=== PATIENT | female | born 1985 ===

== ENCOUNTER 2018-01-12 02:34 | Emergency (ER) | payer MEDICAID ==
[2018-01-12 03:00] VITALS: RESP 18
--- NOTE | 2018-01-12 03:18 | ED PDOC ---
Arrival/HPI - General Chief Complaint: GI Problem Time Seen by Provider: 01/12/18 02:39 Historian: Patient - History of Present Illness Narrative History of Present Illness (Text): 01/12/18 03:15 Macey Aden is a 32 year old female who presents to the Emergency department complaining of vomiting and diarrhea. Patient states she has been experiencing nausea with vomiting, multiple episodes of diarrhea, and abdominal discomfort since yesterday afternoon. Patient notes she had grilled chicken at a fast food restaurant for lunch yesterday. Patient denies fever, chills, chest pain, shortness of breath, urinary symptoms, back pain, neck pain, headache, dizziness, or any other complaints. Symptom Onset: Gradual Symptom Course: Unchanged Activities at Onset: Light Context: Home Past Medical History - Provider Review Nursing Documentation Reviewed: Yes - Infectious Disease Hx of Infectious Diseases: None - Cardiac Hx Cardiac Disorders: Yes Hx Hypertension: Yes (not taking any meds) - Pulmonary Hx Respiratory Disorders: No - Neurological Hx Neurological Disorder: No - HEENT Hx HEENT Disorder: No - Renal Hx Renal Disorder: No - Endocrine/Metabolic Hx Endocrine Disorders: No - Hematological/Oncological Hx Blood Disorders: No - Integumentary Hx Dermatological Disorder: No - Musculoskeletal/Rheumatological Hx Musculoskeletal Disorders: No - Gastrointestinal Hx Gastrointestinal Disorders: No - Genitourinary/Gynecological Hx Genitourinary Disorders: No - Psychiatric Hx Psychophysiologic Disorder: No Hx Substance Use: No - Anesthesia Hx Anesthesia: No Family/Social History - Physician Review Nursing Documentation Reviewed: Yes Family/Social History: Unknown Family HX Smoking Status: Never Smoked Hx Alcohol Use: No Hx Substance Use: No Allergies/Home Meds Allergies/Adverse Reactions: Allergies cefazolin [From Ancef] Allergy (Verified 01/12/18 02:54) VOMITING Home Medications: Home Meds Medication Instructions Recorded Confirmed No Known Home Med 01/12/18 01/12/18 Review of Systems - Physician Review All systems were reviewed & negative as marked: Yes - Review of Systems Constitutional: Normal. absent: Fevers Eyes: Normal ENT: Normal Respiratory: Normal. absent: SOB, Cough Cardiovascular: Normal. absent: Chest Pain Gastrointestinal: Abdominal Pain, Diarrhea, Nausea, Vomiting Genitourinary Female: Normal. absent: Dysuria, Frequency, Hematuria, Urine Output Changes Musculoskeletal: Normal. absent: Back Pain, Neck Pain Skin: Normal. absent: Rash Neurological: Normal. absent: Headache, Dizziness Endocrine: Normal Hemo/Lymphatic: Normal Psychiatric: Normal Physical Exam Vital Signs Reviewed: Yes Vital Signs Temp Pulse Resp BP Pulse Ox 01/12/18 02:59 97.2 F L 85 18 113/70 98 Temperature: Afebrile Blood Pressure: Normal Pulse: Regular Respiratory Rate: Normal Appearance: Positive for: Well-Appearing, Non-Toxic, Comfortable Pain Distress: None Mental Status: Positive for: Alert and Oriented X 3 - Systems Exam Head: Present: Atraumatic, Normocephalic Pupils: Present: PERRL Extroacular Muscles: Present: EOMI Conjunctiva: Present: Normal Mouth: Present: Moist Mucous Membranes Neck: Present: Normal Range of Motion Respiratory/Chest: Present: Clear to Auscultation, Good Air Exchange. No: Respiratory Distress, Accessory Muscle Use Cardiovascular: Present: Regular Rate and Rhythm, Normal S1, S2. No: Murmurs Abdomen: Present: Tenderness (Upper abdominal tenderness). No: Distention, Peritoneal Signs Back: Present: Normal Inspection Upper Extremity: Present: Normal Inspection. No: Cyanosis, Edema Lower Extremity: Present: Normal Inspection. No: Edema Neurological: Present: GCS=15, CN II-XII Intact, Speech Normal Skin: Present: Warm, Dry, Normal Color. No: Rashes Psychiatric: Present: Alert, Oriented x 3, Normal Insight, Normal Concentration Medical Decision Making ED Course and Treatment: 01/12/18 03:15 Impression: 32 year old female complaining of nausea, vomiting, diarrhea, and abdominal discomfort. Plan: -- US Abdomen -- Labs, lipase -- IV fluids -- Zofran -- Pepcid -- Toradol -- Reassess and disposition Progress Notes: 01/12/18 06:12 Reviewed sono, US Abdomen shows: Limitations: Examination limited by increased bowel gas and patient's body habitus. Liver: Unremarkable. No mass. No intrahepatic bile duct dilation. Gallbladder: Partially contracted gallbladder. No stone. Common bile duct: Common bile duct measures 4 mm. Pancreas: Unremarkable as visualized. Right kidney: Right kidney measures 10.2 x 5.3 x 5.6 cm. No stones. No hydronephrosis. IMPRESSION: Hepatic steatosis. 01/12/18 07:28 Pt.still c/o abdominal pain/CT Scan Abd/pelvis ordered/additional analgesics ordered/case endorsed to - Lab Interpretations Lab Results: 01/12/18 03:15 01/12/18 03:15 Lab Results 01/12/18 03:15: WBC 13.8 H, RBC 4.48, Hgb 12.1, Hct 36.4, MCV 81.3, MCH 27.0, MCHC 33.2, RDW 15.1 H, Plt Count 295, MPV 9.8 01/12/18 03:15: Sodium 142, Potassium 3.9, Chloride 106, Carbon Dioxide 23, Anion Gap 17, BUN 16, Creatinine 0.7, Est GFR ( Amer) > 60, Est GFR (Non- Af Amer) > 60, Random Glucose 128 H, Calcium 9.0, Total Bilirubin 0.4, AST 26, ALT 26, Alkaline Phosphatase 85, Total Protein 8.0, Albumin 4.3, Globulin 3.7, Albumin/Globulin Ratio 1.2, Lipase 217 I have reviewed the lab results: Yes - RAD Interpretation Radiology Orders: 01/12/18 04:14 GALLBLADDER & PANCREAS [US] Stat Aluminum Siding Applicator: Radiologist - Medication Orders Current Medication Orders: Discontinued Medications Sodium Chloride (Sodium Chloride 0.9%) 1,000 mls @ 999 mls/hr IV .Q1H1M STA Stop: 01/12/18 04:26 Last Admin: 01/12/18 03:30 Dose: 999 mls/hr eMAR Start Stop Document 01/12/18 03:30 AD (Rec: 01/12/18 03:44 AD [id number]) Intravenous Solution Start Date 01/12/18 Start Time 03:30 Famotidine (Pepcid 20mg/50ml Premix) 20 mg in 50 mls @ 100 mls/hr IVPB STAT STA Stop: 01/12/18 04:03 Last Admin: 01/12/18 03:42 Dose: 100 mls/hr eMAR Start Stop Document 01/12/18 03:42 AD (Rec: 01/12/18 03:43 AD [id number]) Intravenous Solution Start Date 01/12/18 Start Time 03:43 Ketorolac Tromethamine (Toradol) 30 mg IVP ONCE ONE Stop: 01/12/18 03:27 Last Admin: 01/12/18 03:43 Dose: 30 mg MAR Pain Assessment Document 01/12/18 03:43 AD (Rec: 01/12/18 03:43 AD [id number]) Pain Reassessment Is this a pain reassessment? No Presence of Pain Presence of Pain Yes Pain Scale Used Pain Scale Used Numeric Description Intensity of Pain at present 8 Pain Behavior Facial Grimacing IVP Administration Document 01/12/18 03:43 AD (Rec: 01/12/18 03:43 AD [id number]) Charges for Administration # of IVP Administrations 1 Morphine Sulfate (Morphine) 4 mg IVP STAT STA Stop: 01/12/18 06:17 Last Admin: 01/12/18 06:27 Dose: 4 mg MAR Pain Assessment Document 01/12/18 06:27 JOL (Rec: 01/12/18 06:27 [id number] Pain Reassessment Is this a pain reassessment? No Sleep Is patient sleeping during reassessment? No Presence of Pain Presence of Pain Yes Pain Scale Used Pain Scale Used Numeric Location Pain Location Body Site Abdomen IVP Administration Document 01/12/18 06:27 JOL (Rec: 01/12/18 06:27 [id number] Charges for Administration # of IVP Administrations 1 Ondansetron HCl (Zofran Inj) 4 mg IVP ONCE ONE Stop: 01/12/18 03:27 Last Admin: 01/12/18 03:43 Dose: 4 mg IVP Administration Document 01/12/18 03:43 AD (Rec: 01/12/18 03:43 AD [id number]) Charges for Administration # of IVP Administrations 1 - Scribe Statement The provider has reviewed the documentation as recorded by the Scribdon Herrera All medical record entries made by the Scribe were at my direction and personally dictated by me. I have reviewed the chart and agree that the record accurately reflects my personal performance of the history, physical exam, medical decision making, and the department course for this patient. I have also personally directed, reviewed, and agree with the discharge instructions and disposition. Disposition/Present on Arrival - Present on Arrival Any Indicators Present on Arrival: No History of DVT/PE: No History of Uncontrolled Diabetes: No Urinary Catheter: No History of Decub. Ulcer: No History Surgical Site Infection Following: None - Disposition Have Diagnosis and Disposition been Completed?: No Diagnosis: Abdominal pain Disposition Time: 07:20 Condition: STABLE Forms: [employer] (Brazilian)
[2018-01-12] MEDS ORDERED: Sodium Chloride 0.9% 1,000 ML IV STA (03:26)
[2018-01-12 03:34] LABS: HEMOGLOBIN 12.1 g/dL (12.0-16.0); MEAN CELL VOLUME 81.3 fl (80.0-105.0); MEAN CORPUSCULAR HGB CONC 33.2 g/dl (31.0-37.0); MEAN PLATELET VOLUME 9.8 fl (7.0-11.0); RBC 4.48 10^6/uL (3.5-6.1); RED CELL DISTRIBUTION WIDTH 15.1 % (11.5-14.5); WHITE BLOOD COUNT 13.8 10^3/ul (4.5-11.0)
[2018-01-12] MEDS ORDERED: Famotidine 20mg/50ml 20 MG/50 ML BAG IVPB STA (03:34)
[2018-01-12 03:44] LABS: ALB/GLOB RATIO 1.2 (1.1-1.8); ALBUMIN 4.3 g/dL (3.0-4.8); ALT/SGPT 26 U/L (7-56); AST/SGOT 26 U/L (14-36); BLOOD UREA NITROGEN 16 mg/dL (7-21); GFR AFRICAN-AMERICAN > 60; GFR NON-AFRICAN AMERICAN > 60; LIPASE 217 U/L (23-300)
--- NOTE | 2018-01-12 06:09 | US ---
EXAM: US Abdomen Limited, Right Upper Quadrant EXAM DATE/TIME: 01/12/2018 4:14 AM CLINICAL HISTORY: 32 years old, female; Pain; Abdominal pain; Generalized; Additional info: Upper abdominal pain TECHNIQUE: Real-time ultrasound of the right upper quadrant with image documentation. COMPARISON: No relevant prior studies available. FINDINGS: Limitations: Examination limited by increased bowel gas and patient's body habitus. Liver: Unremarkable. No mass. No intrahepatic bile duct dilation. Gallbladder: Partially contracted gallbladder. No stone. Common bile duct: Common bile duct measures 4 mm. Pancreas: Unremarkable as visualized. Right kidney: Right kidney measures 10.2 x 5.3 x 5.6 cm. No stones. No hydronephrosis. IMPRESSION: Hepatic steatosis.
[2018-01-12] MEDS ORDERED: Morphine 4 mg/ml ISec IVP STA ×2 (06:16→07:31)
--- NOTE | 2018-01-12 07:31 | ED PDOC ---
Physical Exam Vital Signs Temp Pulse Resp BP Pulse Ox 01/12/18 07:44 97.9 F 72 18 114/69 97 01/12/18 02:59 97.2 F L 85 18 113/70 98 Medical Decision Making ED Course and Treatment: 01/12/18 07:00 Case signed out to me by Dr. Valladares. Patient is a 32 year old female who presents to the Emergency department complaining of vomiting and diarrhea. Patient states she has been experiencing nausea with vomiting, multiple episodes of diarrhea, and abdominal discomfort since one day ago. Currently pending CT abdominal and pelvic scan. 01/12/18 09:13 Patient is feeling much better. Her pain has subsided to 2/10. She states she's able to tolerate PO. Her abdomen is soft and not tender. No peritoneal signs. She is with who will take her home. She will f/u with her PMD Dr. Patel and I also recommended her for a GI followup with Dr. Macdonald who is partition assembler. Accession No. : [id number] Patient Name / ID : DENTON ALVES / [id number] PROCEDURE: CT Abdomen and Pelvis with contrast IMPRESSION: Fluid in the large bowel may indicate an element of diarrhea. No bowel obstruction, measure edema, ascites or free intraperitoneal gas is demonstrated throughout the abdomen or pelvis. No significant lymphadenopathy or definitive mass. Lack of oral contrast limits evaluation. - Lab Interpretations Lab Results: 01/12/18 03:15 01/12/18 03:15 Lab Results 01/12/18 03:15: WBC 13.8 H, RBC 4.48, Hgb 12.1, Hct 36.4, MCV 81.3, MCH 27.0, MCHC 33.2, RDW 15.1 H, Plt Count 295, MPV 9.8 01/12/18 03:15: Sodium 142, Potassium 3.9, Chloride 106, Carbon Dioxide 23, Anion Gap 17, BUN 16, Creatinine 0.7, Est GFR ( Amer) > 60, Est GFR (Non- Af Amer) > 60, Random Glucose 128 H, Calcium 9.0, Total Bilirubin 0.4, AST 26, ALT 26, Alkaline Phosphatase 85, Total Protein 8.0, Albumin 4.3, Globulin 3.7, Albumin/Globulin Ratio 1.2, Lipase 217 - RAD Interpretation Radiology Orders: 01/12/18 04:14 GALLBLADDER & PANCREAS [US] Stat 01/12/18 07:49 ABD & PELVIS IV CONTRAST ONLY [CT] Stat Cardiac Surgeon: Radiologist - Medication Orders Current Medication Orders: Discontinued Medications Sodium Chloride (Sodium Chloride 0.9%) 1,000 mls @ 999 mls/hr IV .Q1H1M STA Stop: 01/12/18 04:26 Last Admin: 01/12/18 03:30 Dose: 999 mls/hr eMAR Start Stop Document 01/12/18 03:30 AD (Rec: 01/12/18 03:44 AD [id number]) Intravenous Solution Start Date 01/12/18 Start Time 03:30 Famotidine (Pepcid 20mg/50ml Premix) 20 mg in 50 mls @ 100 mls/hr IVPB STAT STA Stop: 01/12/18 04:03 Last Admin: 01/12/18 03:42 Dose: 100 mls/hr eMAR Start Stop Document 01/12/18 03:42 AD (Rec: 01/12/18 03:43 AD [id number]) Intravenous Solution Start Date 01/12/18 Start Time 03:43 Ketorolac Tromethamine (Toradol) 30 mg IVP ONCE ONE Stop: 01/12/18 03:27 Last Admin: 01/12/18 03:43 Dose: 30 mg MAR Pain Assessment Document 01/12/18 03:43 AD (Rec: 01/12/18 03:43 AD [id number]) Pain Reassessment Is this a pain reassessment? No Presence of Pain Presence of Pain Yes Pain Scale Used Pain Scale Used Numeric Description Intensity of Pain at present 8 Pain Behavior Facial Grimacing IVP Administration Document 01/12/18 03:43 AD (Rec: 01/12/18 03:43 AD [id number]) Charges for Administration # of IVP Administrations 1 Morphine Sulfate (Morphine) 4 mg IVP STAT STA Stop: 01/12/18 06:17 Last Admin: 01/12/18 06:27 Dose: 4 mg MAR Pain Assessment Document 01/12/18 06:27 JOL (Rec: 01/12/18 06:27 [id number] Pain Reassessment Is this a pain reassessment? No Sleep Is patient sleeping during reassessment? No Presence of Pain Presence of Pain Yes Pain Scale Used Pain Scale Used Numeric Location Pain Location Body Site Abdomen IVP Administration Document 01/12/18 06:27 JOL (Rec: 01/12/18 06:27 [id number] Charges for Administration # of IVP Administrations 1 Morphine Sulfate (Morphine) 4 mg IVP STAT STA Stop: 01/12/18 07:32 Last Admin: 01/12/18 07:49 Dose: 4 mg MAR Pain Assessment Document 01/12/18 07:49 [email or web address] (Rec: 01/12/18 07:49 [email or web address] [id number]) Pain Reassessment Is this a pain reassessment? No Sleep Is patient sleeping during reassessment? No Presence of Pain Presence of Pain Yes Pain Scale Used Pain Scale Used Numeric Location Pain Location Body Site Abdomen Description Description Constant Intensity of Pain at present 10 Pain Behavior Facial Grimacing Aggravating Factors Changing Position Alleviating Factors/Management Medication Techniques Alleviating Factors Medication IVP Administration Document 01/12/18 07:49 [email or web address] (Rec: 01/12/18 07:49 [email or web address] [id number]) Charges for Administration # of IVP Administrations 1 Ondansetron HCl (Zofran Inj) 4 mg IVP ONCE ONE Stop: 01/12/18 03:27 Last Admin: 01/12/18 03:43 Dose: 4 mg IVP Administration Document 01/12/18 03:43 AD (Rec: 01/12/18 03:43 AD [id number]) Charges for Administration # of IVP Administrations 1 Ondansetron HCl (Zofran Inj) 4 mg IVP ONCE ONE Stop: 01/12/18 07:32 Last Admin: 01/12/18 07:49 Dose: 4 mg IVP Administration Document 01/12/18 07:49 [email or web address] (Rec: 01/12/18 07:49 [email or web address] [id number]) Charges for Administration # of IVP Administrations 1 - Scribe Statement The provider has reviewed the documentation as recorded by the Mike Parnell Provider Scribe Attestation: All medical record entries made by the Scribe were at my direction and personally dictated by me. I have reviewed the chart and agree that the record accurately reflects my personal performance of the history, physical exam, medical decision making, and the department course for this patient. I have also personally directed, reviewed, and agree with the discharge instructions and disposition. Disposition/Present on Arrival - Present on Arrival Any Indicators Present on Arrival: No History of DVT/PE: No History of Uncontrolled Diabetes: No Urinary Catheter: No History of Decub. Ulcer: No History Surgical Site Infection Following: None - Disposition Have Diagnosis and Disposition been Completed?: Yes Diagnosis: Abdominal pain Disposition: HOME/ ROUTINE Disposition Time: 09:15 Patient Plan: Discharge Patient Problems: Current Active Problems Problem Status Onset Abdominal pain Acute Condition: IMPROVED Discharge Instructions (ExitCare): Acute Abdomen (Belly Pain), Adult (DC) Additional Instructions: Ms Guillaume, thank you for letting us take care of you today. Your provider was Dr. Christian. You were treated for Abdominal Pain. The emergency medical care you received today was directed at your acute symptoms. If you were prescribed any medication, please fill it and take as directed. It may take several days for your symptoms to resolve. Return to the Emergency Department if your symptoms worsen, do not improve, or if you have any other problems. Please contact your doctor or call one of the physicians/clinics you have been referred to that are listed on the Patient Visit Information form that is included in your discharge packet. Bring any paperwork you were given at discharge with you along with any medications you are taking to your follow up visit. Our treatment cannot replace ongoing medical care by a primary care provider (PCP) outside of the emergency department. Thank you for allowing the [facility] team to be part of your care today. If you had an X-Ray or CT scan: A Radiologist will review the ED reading if any change in treatment is needed we will contact you. If you had a blood, urine, or wound culture: It will take several days for the results, if any change in treatment is needed we will contact you. If you had an STI test: It will take 48 hours for the results. Please call after 1 week if you have not heard back. Prescriptions: Ondansetron ODT [Zofran ODT] 4 mg PO Q6 #14 odt Ranitidine HCl [Zantac] 150 mg PO BID PRN #30 tablet PRN Reason: Pain, Mild (1-3) Referrals: Whitley Patel MD [Non-Staff] - Follow up with primary Forms: [employer] (Greek), WORK NOTE
[2018-01-12 07:44] VITALS: BP 114/69; TEMP 97.9
--- NOTE | 2018-01-12 09:01 | CT ---
PROCEDURE: CT Abdomen and Pelvis with contrast HISTORY: abd pain COMPARISON: None. TECHNIQUE: Following the intravenous administration of iodinated contrast material, a CT examination of the abdomen and pelvis performed from the domes of the diaphragms to the symphysis pubis with reformatted datasets provided not only axial but also sagittal and coronal planes. Oral contrast was not administered as per referring physician request. Contrast dose: Omnipaque 350, 150 cc Radiation dose: Total exam DLP = 1144.19 mGy-cm. This CT exam was performed using one or more of the following dose reduction techniques: Automated exposure control, adjustment of the mA and/or kV according to patient size, and/or use of iterative reconstruction technique. FINDINGS: LOWER THORAX: Bibasilar dependent atelectasis identified. Cardiomegaly noted. LIVER: Diminished attenuation throughout the liver suggests hepatic steatosis. No underlying mass or cysts appreciable. No definite intrahepatic biliary dilatation. GALLBLADDER AND BILE DUCTS: Unremarkable. PANCREAS: Unremarkable. No gross lesion or ductal dilatation. SPLEEN: Unremarkable. ADRENALS: Unremarkable. No mass. KIDNEYS AND URETERS: Unremarkable. No hydronephrosis. No solid mass. VASCULATURE: Unremarkable. No aortic aneurysm. BOWEL: Fluid is seen in the ascending and transverse colon segments moderately and is minimally seen in the proximal left hemicolon as well. Consider potential diarrhea. . No obstruction. No gross mural thickening. APPENDIX: Normal appendix. PERITONEUM: Unremarkable. No free fluid. No free air. LYMPH NODES: Unremarkable. No enlarged lymph nodes. BLADDER: Unremarkable. REPRODUCTIVE: Unremarkable. BONES: No acute fracture. OTHER FINDINGS: None. IMPRESSION: Fluid in the large bowel may indicate an element of diarrhea. No bowel obstruction, measure edema, ascites or free intraperitoneal gas is demonstrated throughout the abdomen or pelvis. No significant lymphadenopathy or definitive mass. Lack of oral contrast limits evaluation.
[2018-01-12 09:23] VITALS: PULSE 73; O2SAT 99
== END 2018-01-12 09:22 | disposition home or self-care (01) ==
LOC: EDBD → ED 02:34
DX: R10.9 Unspecified abdominal pain (principal); I10 Essential (primary) hypertension
CPT/HCPCS: 74177; 76705; 80053; 83690; 85027; 96374; 96375; 96376; 99284; J1885; J2270; J2405; J7040; Q9967

== ENCOUNTER 2018-09-21 11:01 | Emergency (ER) | payer MEDICAID, OTHER ==
[2018-09-21 11:36] VITALS: BMI 45.3
[2018-09-21] MEDS ORDERED: Sodium Chloride 0.9% 1,000 ML IV STA (11:40)
[2018-09-21 11:46] VITALS: RESP 18
[2018-09-21 12:24] LABS: BASO # 0.02 K/mm3 (0.0-2.0); BASO % 0.2 % (0.0-3.0); EOS # 0.1 (0.0-0.7); GRAN # 5.86 (1.4-6.5); GRAN % 65.9 % (50.0-68.0); HEMOGLOBIN 12.2 g/dL (12.0-16.0); LYMPH # 2.3 (1.2-3.4); LYMPH % 25.9 % (22.0-35.0); MEAN CELL VOLUME 83.6 fl (80.0-105.0); MEAN CORPUSCULAR HEMOGLOBIN 27.1 pg (25.0-35.0); MEAN CORPUSCULAR HGB CONC 32.4 g/dl (31.0-37.0); MEAN PLATELET VOLUME 10.2 fl (7.0-11.0); MONO # 0.6 (0.1-0.6); PH,URINE 5.5 (4.7-8.0); RBC 4.51 10^6/uL (3.5-6.1); URINE BILIRUBIN NEGATIVE (NEGATIVE); URINE BLOOD LARGE (NEGATIVE); URINE GLUCOSE (UA) NEGATIVE (NEGATIVE); URINE LEUKOCYTE ESTERASE NEGATIVE Leu/uL (NEGATIVE); URINE PROTEIN NEGATIVE mg/dL (<30 mg/dL); URINE UROBILINOGEN 0.2 E.U./dL (<1 E.U./dL); WHITE BLOOD COUNT 8.9 10^3/uL (4.5-11.0)
[2018-09-21 12:25] LABS: URINE APPEARANCE CLEAR (CLEAR); URINE COLOR YELLOW (YELLOW)
[2018-09-21 12:27] LABS: URINE BACTERIA MOD /hpf; URINE RBC TNTC /hpf (0-2)
[2018-09-21 12:36] LABS: INR 1.11; PARTIAL THROMBOPLASTIN TIME 31.5 Seconds (25.1-36.5); PROTHROMBIN TIME 12.8 SECONDS (9.4-12.5)
[2018-09-21 12:38] LABS: ALB/GLOB RATIO 1.1 (1.1-1.8); ALBUMIN 4.4 g/dL (3.0-4.8); ALT/SGPT 30 U/L (7-56); AST/SGOT 25 U/L (14-36); BLOOD UREA NITROGEN 13 mg/dL (7-21); CALCIUM 9.4 mg/dL (8.4-10.5); GFR NON-AFRICAN AMERICAN > 60; LIPASE 96 U/L (23-300)
--- NOTE | 2018-09-21 14:02 | US ---
Date of service: 09/21/2018 HISTORY: epigastric pain COMPARISON: Abdomen pelvis CT with contrast 01/12/2018. TECHNIQUE: Sonographic evaluation of the right upper quadrant of the abdomen. FINDINGS: LIVER: Measures 16.8 cm in length. Normal echogenicity of the liver parenchyma. No mass. No intrahepatic bile duct dilatation. Normal directional blood flow seen at the main portal vein. GALLBLADDER: Unremarkable. No gallstones. COMMON BILE DUCT: Measures 5.0 mm. No stones. No dilatation. PANCREAS: The body of pancreas appears unremarkable the remainder obscured by overlying stomach or bowel gas. RIGHT KIDNEY: Measures 11.8 cm in length. Normal parenchymal echogenicity. No definitive mass or hydronephrosis. A 2 mm calculus is identified at the midpole right kidney within a calyx. The punctate upper pole right renal calculus seen in CT 01/12/2018 is not currently identified. AORTA: No aneurysmal dilatation. IVC: Unremarkable. OTHER FINDINGS: None . IMPRESSION: 2 mm intrarenal calculus midpole right kidney. No right hydronephrosis. Partial imaging of the pancreas with remainder of the limited abdomen ultrasound otherwise unremarkable.
--- NOTE | 2018-09-21 14:22 | ED PDOC ---
Arrival/HPI - General Chief Complaint: Abdominal Pain Time Seen by Provider: 09/21/18 11:05 Historian: Patient - History of Present Illness Narrative History of Present Illness (Text): 09/21/18 14:19 33yo female with pmhx of Gastritis who present with complaint of epigastric abdominal pain with associated nausea since this morning. Describes pain as burning and constant. States she took Omeprazole without relieve. Denies fever, chills, vomiting, diarrhea, constipation, hematemesis, hematochezia, urinary symptoms, chest pain, SOB, any other complaint. Notes that she is on day #4 of her monthly period. Past Medical History - Provider Review Nursing Documentation Reviewed: Yes - Infectious Disease Hx of Infectious Diseases: None - Cardiac Hx Cardiac Disorders: Yes Hx Hypertension: Yes (not taking any meds) - Pulmonary Hx Respiratory Disorders: No - Neurological Hx Neurological Disorder: No - HEENT Hx HEENT Disorder: No - Renal Hx Renal Disorder: No - Endocrine/Metabolic Hx Endocrine Disorders: No - Hematological/Oncological Hx Blood Disorders: No - Integumentary Hx Dermatological Disorder: No - Musculoskeletal/Rheumatological Hx Musculoskeletal Disorders: No - Gastrointestinal Hx Gastrointestinal Disorders: No - Genitourinary/Gynecological Hx Genitourinary Disorders: No - Psychiatric Hx Psychophysiologic Disorder: No Hx Substance Use: No - Surgical History Other/Comment: Rt hand sx - Anesthesia Hx Anesthesia: No Family/Social History - Physician Review Nursing Documentation Reviewed: Yes Family/Social History: Unknown Family HX Smoking Status: Never Smoked Hx Alcohol Use: No Hx Substance Use: No Allergies/Home Meds Allergies/Adverse Reactions: Allergies cefazolin [From Ancef] Allergy (Verified 09/21/18 11:36) VOMITING Review of Systems - Physician Review All systems were reviewed & negative as marked: Yes - Review of Systems Constitutional: Normal Eyes: Normal ENT: Normal Respiratory: Normal Cardiovascular: Normal Gastrointestinal: Abdominal Pain, Nausea. absent: Constipation, Diarrhea, Vomiting, Hematochezia, Hematemesis Genitourinary Female: Normal Musculoskeletal: Normal Skin: Normal Neurological: Normal Endocrine: Normal Hemo/Lymphatic: Normal Psychiatric: Normal Physical Exam Vital Signs Reviewed: Yes Vital Signs Temp Pulse Resp BP Pulse Ox 09/21/18 11:40 97.6 F 89 18 115/64 97 Temperature: Afebrile Blood Pressure: Normal Pulse: Regular Respiratory Rate: Normal Appearance: Positive for: Well-Appearing, Non-Toxic, Comfortable Pain Distress: None Mental Status: Positive for: Alert and Oriented X 3 - Systems Exam Head: Present: Atraumatic, Normocephalic Pupils: Present: PERRL Extroacular Muscles: Present: EOMI Conjunctiva: Present: Normal Mouth: Present: Moist Mucous Membranes Neck: Present: Normal Range of Motion Respiratory/Chest: Present: Clear to Auscultation, Good Air Exchange. No: Respiratory Distress, Accessory Muscle Use Cardiovascular: Present: Regular Rate and Rhythm, Normal S1, S2. No: Murmurs Abdomen: Present: Tenderness (Epigastric tenderness), Normal Bowel Sounds, Other (Soft). No: Distention, Peritoneal Signs, Rebound, Guarding, McBurney's Point Tender, Rovsing's Sign Present Back: Present: Normal Inspection Upper Extremity: Present: Normal Inspection. No: Cyanosis, Edema Lower Extremity: Present: Normal Inspection. No: Edema Neurological: Present: GCS=15, CN II-XII Intact, Speech Normal Skin: Present: Warm, Dry, Normal Color. No: Rashes Psychiatric: Present: Alert, Oriented x 3, Normal Insight, Normal Concentration Medical Decision Making ED Course and Treatment: 09/21/18 14:22 33yo female in ED for epigastric pain Labs gallbladder/pancreas US 1L Ns, Pepcid and Zofran Reassess On r evaluation pt notes resolution of her pain. Lab was unremarkable Gallbladder US IMPRESSION: 2 mm intrarenal calculus midpole right kidney. No right hydronephrosis. Partial imaging of the pancreas with remainder of the limited abdomen ultrasound otherwise unremarkable. All result was DW the pt. She takes Omeprazole and pepcid at home and was advised to continue with the medication. Advised to f/u with her PMD/GI. TRT ED for any worsening symptoms. - Lab Interpretations Lab Results: PT 12.8 SECONDS (9.4-12.5) H 09/21/18 12:11 INR 1.11 09/21/18 12:11 APTT 31.5 Seconds (25.1-36.5) 09/21/18 12:11 Total Bilirubin 0.3 mg/dL (0.2-1.3) 09/21/18 12:11 AST 25 U/L (14-36) 09/21/18 12:11 ALT 30 U/L (7-56) 09/21/18 12:11 Alkaline Phosphatase 85 U/L (38-126) 09/21/18 12:11 Total Protein 8.2 g/dL (5.8-8.3) 09/21/18 12:11 Albumin 4.4 g/dL (3.0-4.8) 09/21/18 12:11 Globulin 3.9 gm/dL 09/21/18 12:11 Albumin/Globulin Ratio 1.1 (1.1-1.8) 09/21/18 12:11 Lipase 96 U/L (23-300) 09/21/18 12:11 Urine Color Yellow (YELLOW) 09/21/18 12:11 Urine Appearance Clear (CLEAR) 09/21/18 12:11 Urine pH 5.5 (4.7-8.0) 09/21/18 12:11 Ur Specific [place] >= 1.030 (1.005-1.035) 09/21/18 12:11 Urine Protein Negative mg/dL (<30 mg/dL) 09/21/18 12:11 Urine Glucose (UA) Negative mg/dL (NEGATIVE) 09/21/18 12:11 Urine Ketones Negative mg/dL (NEGATIVE) 09/21/18 12:11 Urine Blood Large (NEGATIVE) H 09/21/18 12:11 Urine Nitrate Negative (NEGATIVE) 09/21/18 12:11 Urine Bilirubin Negative (NEGATIVE) 09/21/18 12:11 Urine Urobilinogen 0.2 E.U./dL (<1 E.U./dL) 09/21/18 12:11 Ur Leukocyte Esterase Negative [place]/uL (NEGATIVE) 09/21/18 12:11 Urine RBC Tntc /hpf (0-2) H 09/21/18 12:11 Urine WBC 1 - 3 /hpf (0-6) 09/21/18 12:11 Ur Epithelial Cells 4 - 5 /hpf (0-5) 09/21/18 12:11 Urine Bacteria Mod /hpf (NONE) 09/21/18 12:11 - RAD Interpretation Radiology Orders: 09/21/18 11:41 GALLBLADDER & PANCREAS [US] Stat - Medication Orders Current Medication Orders: Discontinued Medications Famotidine (Pepcid) 20 mg IVP STAT STA Stop: 09/21/18 11:41 Last Admin: 09/21/18 12:10 Dose: 20 mg IVP Administration Document 09/21/18 12:10 LA (Rec: 09/21/18 12:10 LA [id number]) Charges for Administration # of IVP Administrations 1 Sodium Chloride (Sodium Chloride 0.9%) 1,000 mls @ 1,000 mls/hr IV .Q1H STA Stop: 09/21/18 12:39 Last Admin: 09/21/18 12:09 Dose: 1,000 mls/hr eMAR Start Stop Document 09/21/18 12:09 LA (Rec: 09/21/18 12:09 LA [id number]) Intravenous Solution Start Date 09/21/18 Start Time 12:09 End Date 09/21/18 End time 13:09 Total Infusion Time 60 Ondansetron HCl (Zofran Inj) 4 mg IVP STAT STA Stop: 09/21/18 11:41 Last Admin: 09/21/18 12:10 Dose: 4 mg IVP Administration Document 09/21/18 12:10 LA (Rec: 09/21/18 12:10 LA [id number]) Charges for Administration # of IVP Administrations 1 Disposition/Present on Arrival - Present on Arrival Any Indicators Present on Arrival: No History of DVT/PE: No History of Uncontrolled Diabetes: No Urinary Catheter: No History of Decub. Ulcer: No History Surgical Site Infection Following: None - Disposition Have Diagnosis and Disposition been Completed?: Yes Diagnosis: Abdominal pain Disposition: HOME/ ROUTINE Disposition Time: 14:25 Patient Plan: Discharge Patient Problems: Current Active Problems Problem Status Onset Abdominal pain Acute Condition: STABLE Discharge Instructions (ExitCare): Acute Abdomen (Belly Pain), Adult (DC) Additional Instructions: Follow up with your Doctor Return to ED for any new or worsening symptoms Referrals: Karthikeyan Schulz DO [Staff Provider] - Follow up with primary Forms: [employer] (French)
[2018-09-21 14:41] VITALS: BP 113/60; PULSE 87; TEMP 97.7; O2SAT 100
== END 2018-09-21 14:45 | disposition home or self-care (01) ==
LOC: ED 11:01
DX: R10.13 Epigastric pain (principal); I10 Essential (primary) hypertension
CPT/HCPCS: 76705; 80053; 81001; 81025; 83690; 83735; 85025; 85610; 85730; 96361; 96374; 96375; 99283; J2405; J7030